=== PATIENT | female | born 1960 | race Caucasian/White ===

== ENCOUNTER 2017-10-26 07:23 | Emergency (ER) | payer BC ==
[~2017-10-26] VITALS: Ht 165.1 cm; Wt 117.9 kg
[~2017-10-26 07:23] MED LIST: BUPROPION HCL150 MG PO; DIOVAN HCT 80-1 EACH PO; FENOFIBRATE160 MG PO; HYDROCODON-ACE1 EA11 PO; IBUPROFEN400 MG PO; IRON160 MG PO; METFORMIN HCL1000 M1 PO; METFORMIN HCL1000 MG PO; MIRALAX17 GM PO; OCUVITE TABLET1 EAC1 PO; OXYCODONE HCL5 MG PO; WELLBUTRIN XL150 MG PO; XARELTO10 MG PO; ZYRTEC10 MG PO
[2017-10-26] MEDS ORDERED: GLYBURIDE5 MG PO (07:37)
[2017-10-26] MEDS ORDERED: VITAMIN D250000 UNIT PO (07:37)
== END 2017-10-26 08:15 | disposition home or self-care (01) ==
LOC: ED 07:23
PROC: 0W3Q7ZZ Control Bleeding in Respiratory Tract, Via Natural or Artificial Opening (ICD-10-PCS; principal; 2017-10-26)
DX: R04.0 Epistaxis (principal); I10 Essential (primary) hypertension; E11.9 Type 2 diabetes mellitus without complications; E78.5 Hyperlipidemia, unspecified; Z98.51 Tubal ligation status; Z90.49 Acquired absence of other specified parts of digestive tract; Z96.651 Presence of right artificial knee joint; Z79.899 Other long term (current) drug therapy; Z79.84 Long term (current) use of oral hypoglycemic drugs
CPT/HCPCS: 30903; 99282

== ENCOUNTER 2017-10-27 14:02 | Emergency (ER) | payer BC ==
[~2017-10-27] VITALS: Ht 165.1 cm; Wt 117.9 kg
[~2017-10-27 14:02] MED LIST changes: +GLYBURIDE5 MG PO; +VITAMIN D250000 UNIT PO
== END 2017-10-27 16:01 | disposition home or self-care (01) ==
LOC: ED 14:02
PROC: 0W3Q0ZZ Control Bleeding in Respiratory Tract, Open Approach (ICD-10-PCS; principal; 2017-10-27)
DX: R04.0 Epistaxis (principal); I10 Essential (primary) hypertension; E11.9 Type 2 diabetes mellitus without complications; E78.5 Hyperlipidemia, unspecified; Z90.49 Acquired absence of other specified parts of digestive tract; Z98.51 Tubal ligation status; Z96.651 Presence of right artificial knee joint; Z79.899 Other long term (current) drug therapy; Z79.84 Long term (current) use of oral hypoglycemic drugs
CPT/HCPCS: 30903; 99282

== ENCOUNTER 2019-01-26 13:18 | Emergency (ER) | payer BC ==
[~2019-01-26] VITALS: Ht 165.1 cm; Wt 120.2 kg
--- OUTSIDE RECORDS SUMMARY | ~2019-01-26 | XMS | Clinical Summary ---
Demographics + + + | Address | [address] | | | [place] [address] | + + + | Home Phone | | + + + | Preferred Language | Unknown | + + + | Marital Status | | + + + | Yazidism Affiliation | 1041 | + + + | Race | Unknown | + + + | Ethnic Group | Unknown | + + + Author + + + | Author | [facility] | | | and [place] | + + + | Organization | [facility] | | | and [place] | + + + | Address | Unknown | + + + | Phone | Unavailable | + + + Support + + +---------+ + | Name | Relationship | Address | Phone | + + +---------+ + | CHAZ BLANDON ECON | Unknown | | + + +---------+ + Care Team Providers + +------+ + | Care Profile Saw Setup Operator Name | Role | Phone | + +------+ + PP | Unavailable | + +------+ + Allergies Not on File Current Medications Not on file Active Problems Not on file Social History + +-------+ +--------+------+ | Tobacco Use | Types | Packs/Day | Years | Date | | | | | Used | | + +-------+ +--------+------+ | Never Assessed | | | | | + +-------+ +--------+------+ + + + | Sex Assigned at | Date Recorded | | | | + + + | Not on file | | + + + Plan of Treatment + + + + + | Health Maintenance | Due Date | Last Done | Comments | + + + + + | Vaccine: | | | | | Dtap/Tdap/Td (1 - | 9 | | | | Tdap) | | | | + + + + + | Cervical Cancer | | | | | Screening (Pap) | 0 | | | + + + + + | Vaccine: Zoster (1 | | | | | of 2) | 0 | | | + + + + + | Vaccine: Influenza | | | | | (#1) | 8 | | | + + + + + Results Not on filefrom Last 3 Months"
--- OUTSIDE RECORDS SUMMARY | ~2019-01-26 | XMS | Clinical Summary ---
Demographics + + + | Address | [address] | | | [place] [address] | + + + | Home Phone | | + + + | Preferred Language | Unknown | + + + | Marital Status | | + + + | Gnosticism Affiliation | 1041 | + + + | Race | Unknown | + + + | Ethnic Group | Unknown | + + + Author + + + | Author | [facility] | | | and [place] | + + + | Organization | [facility] | | | and [place] | [...] Team Providers + +------+ + | Care Safety Analyst Name | Role | Phone | + [...]
[2019-01-26] MEDS ORDERED: NORCO 7.5-3251 EACH PO (17:26)
== END 2019-01-26 17:55 | disposition home or self-care (01) ==
LOC: ED 13:18
DX: S86.912A Strain of unspecified muscle(s) and tendon(s) at lower leg level, left leg, initial encounter (principal); I10 Essential (primary) hypertension; E11.9 Type 2 diabetes mellitus without complications; E78.5 Hyperlipidemia, unspecified; Z79.84 Long term (current) use of oral hypoglycemic drugs; Z79.899 Other long term (current) drug therapy; X50.9XXA Other and unspecified overexertion or strenuous movements or postures, initial encounter
CPT/HCPCS: 93971; 99283-25

== ENCOUNTER 2021-08-30 05:45 | Day surgery (SDC) | payer BC ==
[~2021-08-30] VITALS: Ht 165.1 cm; Wt 105.9 kg
[~2021-08-30 05:45] MED LIST changes: +GINKGO60 MG PO; +LIPITOR20 MG PO; +LISINOPRIL-HCT1 EAC2 PO; +NORCO 7.5-3251 EACH PO; +NORVASC5 MG PO; +OCUVITE ADULT1 EAC1 PO; +SINGULAIR10 MG PO; +TRULICITY1.5 MG/0.5 SQ
--- NOTE | 2021-09-01 18:12 | EKG ---
[facility] [address] [facility] [place] [address] Signed Normal sinus rhythm Low voltage QRS Borderline ECG No previous ECGs available Confirmed by LEDY TANG MD ([id number]) on 09/01/2021 6:11:54 PM Electronically Signed By: LEDY TANG MD 09/01/211811 PATIENT NAME: RUFINA BLANDON Electrocardiogram DATE OF : 60 PHYSICIAN: LEDY TANG MD REPORT #: [id number] REPORT IS CONFIDENTIAL AND NOT TO BE RELEASED WITHOUT AUTHORIZATION
--- NOTE | 2021-09-02 15:14 | PATH ---
[facility] [address] [place], [place] [address] Signed SPECIMEN(S): A UTERUS, CERVIX, BILAT FALLOPIAN TUBES SPECIMEN SOURCE: A. UTERUS, CERVIX, BILAT FALLOPIAN TUBES CLINICAL HISTORY: Complex endometrial hyperplasia FINAL PATHOLOGIC DIAGNOSIS: Uterus with bilateral fallopian tubes, hysterectomy and bilateral salpingectomy: - Inactive endometrium; no hyperplasia or neoplasia identified. - No residual endometrial polyp. - Leiomyomas, one with cellular and symplastic features. - Cervix with no significant pathologic changes. - Bilateral fallopian tubes, with no significant pathologic changes. COMMENT: The previous histologic material ([id number]) is reviewed in conjunction with the current case. BRP:llc:C2NR MICROSCOPIC EXAMINATION: Histologic sections of all submitted blocks are examined by light microscopy. These findings, together with the gross examination, support the pathologic diagnosis. GROSS DESCRIPTION: The specimen, labeled "PP, A," and designated on the requisition "bilateral tubes, cervix, and uterus," is received in formalin and consists of a uterus with attached cervix, two detached fimbriated fallopian tube segments, and one additional tubal segment. The orientation of the uterus is grossly indeterminate. The uterus with attached cervix weighs 125.8 g and measures 8.7 x 7.7 x 3.7 cm. The uterine serosa is richardson, glistening, and focally distended by multiple richardson-white nodular areas from 1.2 up to 3.5 cm in greatest dimension. The ectocervical tissue is richardson-white, brown freckled, smooth, and occupies a 2.9 x 2.7 cm area. The external os is oval, patent, and 0.7 cm in diameter. The internal os is patent and the cervical stroma is grossly unremarkable. The triangular endometrial cavity measures 4.1 x 3.1 cm. The richardson to dark red endometrium is PATIENT NAME: RUFINA BLANDON PATHOLOGY DATE OF : 60 REPORT #: [id number] PHYSICIAN: [facility]OM[facility] PATHOLOGY PCP: RODGER FRAUSTO MD REPORT IS CONFIDENTIAL AND NOT TO BE RELEASED WITHOUT AUTHORIZATION [facility] [address] [place], [place] [address] Signed up to 0.1 cm thick without a discrete mass/lesion. The richardson, rubbery myometrium contains multiple somewhat well-circumscribed, richardson to richardson-white nodules from 0.7 to 2.5 cm in greatest dimension. The nodules are contiguous with the serosal nodules and have a richardson-white, whorled cut appearance. An additional discrete mass/lesion is not grossly identified. The two fimbriated fallopian tube segments are undesignated, richardson-purple, and have a patent lumen. The first is 1.1 cm long, 0.7 cm in diameter, inked blue, and has multiple thin fluid-filled, smooth inner walled, paratubal cystic structures from less than 0.1 up to 0.3 cm in greatest dimension. The second is 2.2 cm long, 0.7 cm in diameter, and has multiple clear fluid-filled to purulent richardson-white fluid-filled, smooth inner walled paratubal cystic structures from less than 0.1 up to 0.7 cm in greatest dimension. The additional tubal segment is 2.2 cm long, richardson-white, 0.6 cm in diameter, grossly unremarkable, inked orange, and has a patent lumen. Represented sections are submitted as follows: A1-A2: cervix A3-A4: uterine wall A5-A6: myometrial nodules A7-A8: additional sections of endomyometrium A9-A10: tubes including fimbria entirely AI (under the direct supervision of a pathologist) The nodule that is represented in cassette (A5) is additionally sectioned and upon sectioning shows signs of hemorrhage. Entire nodule is submitted in additional nine cassettes (A11-A19) per Dr. Ko request. JS (under the direct supervision of a pathologist) The Gross Description was prepared using a voice recognition system. The report was reviewed for accuracy; however, sound-alike word errors, addition and/or deletions may occur. If there is any question about this report, please contact Client Services. PERFORMING LABORATORY: The technical component was performed by [place] [address] (Ict Managers: Thuy Bedoya MD; CLIA# [id number]). Professional interpretation [facility], [address] [place] [address] (CLIA# [id number]). PATIENT NAME: RUFINA BLANDON PATHOLOGY DATE OF : 60 REPORT #: [id number] PHYSICIAN: SALOMON HASSAN PCP: RODGER FRAUSTO MD REPORT IS CONFIDENTIAL AND NOT TO BE RELEASED WITHOUT AUTHORIZATION [facility] [address] [place] [address] Signed Diagnostician: Maikol Ko MD Pathologist Electronically Signed 09/02/2021 Copies: ~ PATIENT NAME: RUFINA BLANDON PATHOLOGY DATE OF : 60 REPORT #: [id number] PHYSICIAN: SALOMON PATHOLOGY PCP: RODGER FRAUSTO MD REPORT IS CONFIDENTIAL AND NOT TO BE RELEASED WITHOUT AUTHORIZATION
--- NOTE | 2021-09-05 13:55 | OR ---
[facility] [address] [place], [place] [address] Signed DATE OF OPERATION: 08/30/2021 SURGEON: Nallely Erwin DO PREOPERATIVE DIAGNOSES: 1. Postmenopausal bleeding. 2. Complex endometrial hyperplasia without atypia. 3. Fibroid uterus. POSTOPERATIVE DIAGNOSES: 1. Postmenopausal bleeding. 2. Complex endometrial hyperplasia without atypia. 3. Fibroid uterus. PROCEDURES PERFORMED: 1. Total laparoscopic hysterectomy. 2. Bilateral salpingectomy. 3. Cystoscopy. SOLVENT RECOVERER: Juan Vera MD ANESTHESIA: General. ESTIMATED BLOOD LOSS: 75 mL. SPECIMENS: 1. Uterus fibroid and cervix. 2. Bilateral fallopian tubes. IMPLANTS: Uriostegui to dependent draining. FINDINGS: On external exam, normal external genitalia with grade 1/2 rectocele with a component of apical prolapse. Normal postmenopausal changes. On laparoscopy, normal bilateral ovaries and status post tubal ligation bilaterally. Fibroid uterus. Following colpotomy, small amount of oozing was noted from the right uterine vessels that was made Electronically Signed By: NALLELY ERWIN DO 09/05/21 1355 PATIENT NAME: RFUINA BLANDON OPERATIVE REPORT DATE OF : 60 REPORT #: [id number] PHYSICIAN: NALLELY ERWIN DO PCP: RODGER FRAUSTO MD REPORT IS CONFIDENTIAL AND NOT TO BE RELEASED WITHOUT AUTHORIZATION [facility] [address] [place] [address] Signed hemostatic with surgical clip and ligature. Normal bladder with bilateral ureteral jets. COMPLICATIONS: None. INDICATIONS: Ms. Blandon is a pleasant 61-year-old postmenopausal female, who developed postmenopausal bleeding. An ultrasound was performed that demonstrated thickened endometrium and fibroid uterus. In-office hysteroscopy D and C was performed that demonstrated focal complex endometrial hyperplasia without atypia. Recommended total laparoscopic hysterectomy with bilateral salpingectomy and cystoscopy. The patient understands and wished to proceed with the procedure. TECHNIQUE: The patient was taken to the OR where a time-out was performed to confirm correct patient and correct procedure. General anesthesia was adequately established. The patient was prepped and draped in the dorsal lithotomy position with her feet in Yellofin stirrups. ICPs were on and running and she received Ancef preoperatively as well as heparin per [facility] protocol. A weighted speculum was placed in the vagina and the anterior lip of the cervix was grasped with an Allis clamp. The cervix was gently dilated using Hegar dilators and a disposable uterine manipulator was placed. A Uriostegui catheter was inserted. Attention was then turned to the abdomen. The base of the umbilicus was infiltrated with 0.25% Marcaine with epinephrine and a 5 mm stab incision was made. A 5 mm trocar was placed with direct visualization without complication. Pneumoperitoneum was established. Survey of the abdomen and pelvis was performed that demonstrated fibroid uterus, normal bilateral ovaries, and status post tubal ligation with no pelvic adhesions. A 5 mm assist port was placed in the left lower quadrant under direct visualization and an 8 mm expanding port was placed in the right lower quadrant under direct visualization without complication. The left fallopian tube was grasped, elevated, and divided along the mesosalpinx and delivered and sent to pathology for further evaluation. The process was repeated on the right without difficulty. The right utero-ovarian ligament was fulgurated and divided with excellent hemostasis and the round ligament was fulgurated and divided. Leaves of the broad ligament were then divided down to the level of the vaginal cup and anterior leaf was pressed down along with the bladder and the posterior leaf was pushed down to the level of the uterosacral ligament. The uterine vessels were identified, fulgurated, and divided with excellent hemostasis. The process was repeated on the contralateral side with excellent hemostasis. Colpotomy was then performed using Sonicision device by following the green edge of the vaginal cup circumferentially. The cervix, uterus, and fibroid were delivered intact through the vagina and sent to pathology for further evaluation. No spillage of tissue was appreciated. A small amount of oozing was noted on the right Electronically Signed By: NALLELY ERWIN DO 09/05/21 1355 PATIENT NAME: RUFINA BLANDON OPERATIVE REPORT DATE OF : 60 REPORT #: [id number] PHYSICIAN: NALLELY ERWIN DO PCP: RODGER FRAUSTO MD REPORT IS CONFIDENTIAL AND NOT TO BE RELEASED WITHOUT AUTHORIZATION [address] [address] Signed pelvic sidewall where the uterine vessels noted to be oozing. These were isolated, elevated, and surgical clip was applied. Ligature was then used to seal the ends. The pelvis was irrigated and found to be hemostatic. Attention was then turned to colpotomy repair. The right uterosacral ligament was grasped, elevated, and V-Loc suture with an Endostitch device was used to close the colpotomy with careful attention to corporate the uterosacral ligaments bilaterally and the vaginal epithelium with each bite. Excellent hemostasis and apical support were noted. The pelvis was again irrigated and found to be hemostatic. Tisseel was applied to the bilateral pedicles and pressure was lowered slowly and no bleeding was noted. Trocars were removed and trocar sites were repaired using 4-0 Monocryl. Attention was turned to cystoscopy. The Uriostegui catheter was removed and a 70-degree cystoscope was placed in the urethral meatus and advanced under direct visualization into the bladder. Normal trigone and bladder dome were appreciated. Bilateral ureteral jets were noted. The bladder was drained. Uriostegui catheter was reinserted and the patient was taken the PACU in good and stable condition. Sponge, needle, and instrument count was correct x2 at the end of the procedure. Dr. Vera was present and participated in all portions of the procedure. Nallely Erwin DO JDW/MODL /[id number] Copies: ~ Electronically Signed By: NALLELY ERWIN DO 09/05/21 1355 PATIENT NAME: RUFINA BLANDON OPERATIVE REPORT DATE OF : 60 REPORT #: [id number] PHYSICIAN: NALLELY ERIWN DO PCP: RODGER FRAUSTO MD REPORT IS CONFIDENTIAL AND NOT TO BE RELEASED WITHOUT AUTHORIZATION
== END 2021-08-30 14:15 | disposition home or self-care (01) ==
LOC: DS 05:45
PROVIDERS: ATTEND Obstetrics & Gynecology
PROC: 0UT94ZZ Resection of Uterus, Percutaneous Endoscopic Approach (ICD-10-PCS; principal; 2021-08-30 06:45)
PROC: 0UT74ZZ Resection of Bilateral Fallopian Tubes, Percutaneous Endoscopic Approach (ICD-10-PCS; 2021-08-30 06:45)
DX: N95.0 Postmenopausal bleeding (principal); N85.01 Benign endometrial hyperplasia; D25.9 Leiomyoma of uterus, unspecified; I10 Essential (primary) hypertension; E11.9 Type 2 diabetes mellitus without complications; E78.2 Mixed hyperlipidemia; Z88.5 Allergy status to narcotic agent; Z88.8 Allergy status to other drugs, medicaments and biological substances; Z79.84 Long term (current) use of oral hypoglycemic drugs; Z96.651 Presence of right artificial knee joint
CPT/HCPCS: 00840; 93005; 93010; J0330; J0690; J1100; J1644; J1885; J2001; J2250; J2300; J2405; J2704; J7121

== ENCOUNTER 2023-07-04 13:55 | Emergency (ER) | payer BC ==
[~2023-07-04] VITALS: Ht 165.1 cm; Wt 105.7 kg
[2023-07-04] MEDS ORDERED: LISINOPRIL-HCT1 EACH PO (14:03)
[2023-07-04] MEDS ORDERED: MONTELUKAST SOD10 MG PO (14:03)
[2023-07-04 14:26] LABS: HEMATOCRIT 37.5 % (35.0-50.0); HEMOGLOBIN 12.5 g/dL (12.0-18.0); MCH 26.8 (27-36); MCHC 33.4 g/dl (30-36); MCV 80.2 fl (81-99); PLATELET COUNT 310 K/uL (140-440); RBC 4.67 M/ul (4.3-5.7); RDW 14.3 (10.5-15.0)
[2023-07-04 14:39] LABS: ALBUMIN 3.4 g/dL (3.4-5.0); ALKALINE PHOSPHATASE 100 U/L (46-116); ALT (SGPT) 30 U/L (14-59); ANION GAP 13.7 (7-21); AST (SGOT) 25 U/L (15-37); BILIRUBIN, TOTAL 0.5 ng/dL (0.2-1.0); BUN/CREATININE RATIO 16.21 (6.0-28.6); CALCIUM 9.2 mg/dL (8.5-10.1); CARBON DIOXIDE 28 mmol/L (21-32); CHLORIDE 101 mmol/L (98-107); CREATININE, SERUM 0.74 mg/dL (0.55-1.02); GLOMERULAR FILTRATION RATE,EST 91 mL/min (>60); MAGNESIUM 1.6 mg/dL (1.8-2.4); POTASSIUM 3.7 mmol/L (3.5-5.1); PROTEIN, TOTAL 6.8 g/dL (6.4-8.2); UREA NITROGEN 12 mg/dL (7-18)
[2023-07-04 14:58] LABS: BANDS, MANUAL DIFF 1; EOSINOPHILS, MANUAL DIFF 4; LYMPHOCYTES, MANUAL DIFF 30; MONOCYTES, MANUAL DIFF 8; NEUTROPHILS, MANUAL DIFF 57
[2023-07-04 18:35] VITALS: BP 116/72
--- NOTE | 2023-07-04 21:08 | EKG ---
[facility] [address] [facility] [place], [place] [address] Signed Normal sinus rhythm Normal ECG When compared with ECG of 30-AUG-2021 05:57, No significant change was found Confirmed by NICOLETTE DELONG MD ([id number]) on 07/04/2023 9:08:28 PM Electronically Signed By: NICOLETTE DELONG 07/04/232107 PATIENT NAME: RUFINA BLANDON Electrocardiogram DATE OF : 60 PHYSICIAN: NICOLETTE DELONG REPORT #: [id number] REPORT IS CONFIDENTIAL AND NOT TO BE RELEASED WITHOUT AUTHORIZATION
== END 2023-07-04 16:31 | disposition home or self-care (01) ==
LOC: ED 13:55
PROVIDERS: Emergency Medicine
DX: R07.89 Other chest pain (principal); M79.602 Pain in left arm; I10 Essential (primary) hypertension; E78.5 Hyperlipidemia, unspecified; E11.9 Type 2 diabetes mellitus without complications; Z88.1 Allergy status to other antibiotic agents; Z79.84 Long term (current) use of oral hypoglycemic drugs; Z79.899 Other long term (current) drug therapy
CPT/HCPCS: 36415; 71045; 80053; 83735; 84484; 85025; 93005; 93010; 99285-25; A9270